=== PATIENT | female | born 1965 | race Caucasian/White ===

== ENCOUNTER → 2023-04-08 | Outpatient (CLI) | payer OTHER ==
--- NOTE | 2023-04-08 21:05 | PE ---
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 Images are reviewed on the computer in the coronal, a xial, and sagittal planes. Reconstructed rotating images are created on independent workstation and reviewed on the computer. A non-contrast CT is performed in conjunction with the PET scan. Glucose level 145 mg/dL COMPARISON: CT None, PET/CT None, FINDINGS: Mediastinal SUV mean is 1.5. Hepatic parenchyma SUV mean is 2.2. SKULL BASE AND NECK: No suspicious radiotracer activity. CHEST, MEDIASTINUM, AND HILAR REGION: No suspicious radiotracer activity. ABDOMEN AND PELVIS: No suspicious radiotracer activity. MUSCULOSKELETAL STRUCTURES: No suspicious radiotracer activity. Bilateral upper extremity muscle strain OTHER CT: Atherosclerosis of the arterial vasculature. Multip le right upper chest wall varicosities are noted. Atherosclerosis of the arteries are present. IMPRESSION: No suspicious radiotracer activity.
== END | disposition home or self-care (01) ==
LOC: RADPETMAIN 15:16
PROVIDERS: ATTEND Internal Medicine
DX: C88.4 Extranodal marginal zone B-cell lymphoma of mucosa-associated lymphoid tissue [MALT-lymphoma] (principal)
CPT/HCPCS: 78815; A9552

== ENCOUNTER 2023-06-29 11:44 | Day surgery (SDC) | payer OTHER ==
[2023-06-27 16:12] VITALS: BMI 44.2
--- NOTE | 2023-06-28 13:49 | P.HPOR ---
History of Present Illness H&P Date: 06/28/23 Subjective: This is a 57 year old female that presents today for initial evaluation regarding a several year history of progressively worsening right and left hand numbness and tingling and right and left base of the thumb pain which is worse on the right side compared to the left side. She has numbness and tingling with burning sensation in the thumb, index and middle finger as well as pain with pinch grasp and table movement of the thumb. She has tried to wear braces in the past with minimal relief. She denies any injury or inciting event. Physical Examination: LUE: AIN/PIN/Radial/Ulnar/Median motor intact. Radial/Ulnar/Median SILT. 2+/4 Radial/Ulnar pulses palpated. 5/5 APB, 5/5 FDI. Negative Finkelsteins, positive CMC grind, positive Durkan's compression. RUE: AIN/PIN/Radial/Ulnar/Median motor intact. Radial/Ulnar/Median SILT. 2+/4 Radial/Ulnar pulses palpated. 5/5 APB, 5/5 FDI. Negative Finkelsteins, positive CMC grind, positive Durkan's compression. Imaging: X-Rays of the left hand 3 view taken in the office today demonstrate severe left thumb CMC arthritis. X-Rays of the right hand 3 view taken in the office today demonstrate severe right thumb CMC arthritis. Impression: 1.)B/L Severe thumb CMC arthritis 2.) B/L carpal tunnel syndrome Plan: Diagnosis and treatment options were discussed with the patient. She's fail conservative treatment for her bilateral carpal tunnel syndrome and base of the thumb pain and would like to pursue surgical intervention. She would like to go forward with a right endoscopic versus open carpal tunnel release and a right thumb CMC basilar joint arthroplasty. Risks and benefits of surgery including bleeding, infection, damage to surrounding tissue, need for further surgery, possible need to convert to open procedure, residual numbness were discussed and the patient wished to go forward with surgery. The patient was agreeable with this plan. CC: Isaac Garcia M.D. -Les Lynn DO Orthopedic Hand/Upper Extremity Surgeon Past Medical History Past Medical History: Coronary Artery Disease (CAD), Cancer, Chest Pain / Angina, CVA/TIA, GERD/Reflux, Hypertension, Thyroid Disorder Additional Past Medical History / Comment(s): Lymphoma, diagnosed 20 yrs ago, in remission. Born with a heart murmur. CVA 15 yrs ago, no residual effects. CPAP use. Hx thyroid problems, no current problems. History of Any Multi-Drug Resistant Organisms: None Reported Additional Past Surgical History / Comment(s): Thyroidectomy, eye surgery, bilateral foot surgery. Past Anesthesia/Blood Transfusion Reactions: No Reported Reaction Past Psychological History: Depression Smoking Status: Never smoker Past Alcohol Use History: None Reported Past Drug Use History: Marijuana Additional Drug Use History / Comment(s): Marijuana use on and off. Aware no use 24 hrs prior to procedure. - Past Family History Mother Family Medical History: Cancer Additional Family Medical History / Comment(s): Blood cancer. Medications and Allergies Home Medications Medication Instructions Recorded Confirmed Type ARIPiprazole IM [Abilify Maintena] 400 mg IM Q30D 11/25/22 06/27/23 History Ammonium Lactate Cream [Lac-Hydrin 1 applic TOPICAL BID PRN 11/25/22 06/27/23 History 12% Cream] Atorvastatin [Lipitor] 40 mg PO DAILY 11/25/22 06/27/23 History Budesonide/Formoterol Fumarate 2 puff INHALATION BID 11/25/22 06/27/23 History [Symbicort 160-4.5 Mcg Inhaler] Loratadine [Claritin] 10 mg PO DAILY 11/25/22 06/27/23 History Losartan Potassium 100 mg PO HS 11/25/22 06/27/23 History Metoprolol Succinate (ER) [Toprol 100 mg PO QAM 11/25/22 06/27/23 History XL] Potassium Chloride ER [K-Dur 10] 10 meq PO DAILY 11/25/22 06/27/23 History Tiotropium 2.5 Mcg/Puff [Spiriva 1 puff INHALATION BID 11/25/22 06/27/23 History Respimat 2.5 Mcg] lamoTRIgine 100 mg PO QAM 11/25/22 06/27/23 History Allergies Allergy/AdvReac Type Severity Reaction Status Date / Time No Known Allergies Allergy Verified 06/27/23 15:59 Physical Examination Osteopathic Statement: *. No significant issues noted on an osteopathic structural exam other than those noted in the History and Physical/Consult.
[~2023-06-29 11:44] MED LIST: DEXAMETHASONE SOD PHOSPHATE 4 MG/ML 1 ML VIAL IV ONE; HYDROmorphone 0.5 MG/0.5 ML SYRINGE IVP PRN; LACTATED RINGERS 1,000 ML IV SCH; LIDOCAINE 1% (10MG/ML) FOR IV START INTRADERMA PRN; ONDANSETRON 4 MG/2 ML VIAL IVP ONE; ceFAZolin 3 GM in SODIUM CHLORIDE 0.9% 100 ML IVPB PRN; droPERidol 5 MG/2 ML VIAL IVP ONE
[2023-06-29] MEDS ORDERED: MIDAZOLAM 2 MG/2 ML VIAL IVP ONE (13:03)
[2023-06-29] MEDS ORDERED: fentaNYL (PF) 50 MCG/ML 2 ML AMP IVP ONE (13:03)
[2023-06-29] MEDS ORDERED: SUCCINYLCHOLINE CHLORIDE 200 MG/10 ML VIAL IV ONE (13:17)
[2023-06-29] MEDS ORDERED: MIDAZOLAM 2 MG/2 ML VIAL ONE (13:17)
[2023-06-29] MEDS ORDERED: KETAMINE 10 MG/ML 20 ML VIAL ONE (13:17)
[2023-06-29] MEDS ORDERED: fentaNYL (PF) 50 MCG/ML 2 ML AMP ONE (13:17)
[2023-06-29] MEDS ORDERED: ROPIVACAINE 5 MG/ML 30 ML VIAL ONE (13:17)
[2023-06-29] MEDS ORDERED: LIDOCAINE 2% INJ 20 MG/ML (2 ML VIAL) ONE (13:17)
[2023-06-29] MEDS ORDERED: GLYCOPYRROLATE 0.2 MG/ML 2 ML VIAL ONE (13:17)
[2023-06-29] MEDS ORDERED: PROPOFOL 10 MG/ML 20 ML VIAL IV ONE (13:17)
--- NOTE | 2023-06-29 13:21 | P.ANPRN ---
Procedure Note - Anesthesia - Nerve Block Performed Right Axillary Time Out Performed: Yes (13:03) Date of Procedure: 06/29/23 Procedure Start Time: : Procedure Stop Time: : Location of Patient: PreOp Indication: Acute Post-Operative Pain, Requested by Surgeon (Dr Lynn) Sedation Type: Sedate with meaningful contact maintained Preparation: Sterile Prep Position: Supine Catheter: None Needle Types: Pajunk Needle Gauge: Other (see comment) (22g) Ultrasound used to visualize needle placement: Yes Ultrasound used to observe medication spread: Yes Injectate: 0.5% Ropivacaine (see comment for volume) (22cc) Blood Aspirated: No Pain Paresthesia on Injection Noted: No Resistance on Injection: Normal Image Stored and Saved: Yes Events: Uneventful and Well Tolerated
[2023-06-29 14:38] VITALS: TEMP 97.2
[2023-06-29 15:03] VITALS: RESP 14
[2023-06-29] MEDS ORDERED: HYDROcodone/APAP 5-325MG 1 EACH TAB ONE (15:08)
--- NOTE | 2023-06-29 16:56 | P.OP ---
Date of Procedure: 06/29/23 Preoperative Diagnosis: 1.) Right thumb CMC basilar joint arthritis 2.) Right carpal tunnel syndrome Postoperative Diagnosis: 1.) Right thumb CMC basilar joint arthritis 2.) Right carpal tunnel syndrome Procedure(s) Performed: 1.) Right thumb CMC basilar joint arthroplasty 2.) Right endoscopic carpal tunnel release Implants: Arthrex 3.5mm Swivel Lock Suture [place] x2 Anesthesia: jaspal RUIZ Surgeon: Les Lynn Corporate Specialist #1: Osvaldo Saldana Estimated Blood Loss (ml): 0 Pathology: none sent Condition: stable Disposition: PACU Description of Procedure: This is a 57 year old female who presents today for a right thumb CMC basal joint arthroplasty and right endoscopic carpal tunnel release after having failed conservative treatment for carpal tunnel syndrome and severe thumb CMC arthritis and clinic. Risks and benefits of surgery were discussed with the patient including bleeding, damage to surrounding tissue, infection, need for further surgery as well as risks of anesthesia including pulmonary embolism and even and the patient wished to proceed with surgical intervention. The patients was seen in the pre-operative area by myself. Consent and H&P were completed and updated. The correct extremity was marked in the pre-operative area by myself and all other questions were answered. Patient received a upper extremity nerve block by the department of anesthesia. He then was brought to the operating room by the department of anesthesia. They remained on the portable stretcher and a rolling hand table was brought to the side of the operative extremity. The patient was then drifted off to sleep by the department of anesthesia. A nonsterile tourniquet was then applied to the operative extremity and the right upper extremity was then prepped and draped in normal sterile fashion. Pre-operative time out was performed indicating the correct patient, procedure and laterality. All in the room agreed. Pre-operative antibiotics were given prior to skin incision. The operative extremity was the exsanguinated with an esmarch bandage and the tourniquet was inflated to 250mmHg. 15 blade scalpel was utilized to make a transverse incision on the palmar skin just ulnar to the palmaris longus tendon at the level of the distal wrist crease. Ragnell retractor was then placed radially and blunt dissection was performed to reveal the distal forearm fascia. This was lifted with fine Leo pick ups and Allysonr tenotomy scissors were then used to open the forearm fascia transversely and a double skin hook was then placed. Hamate finder was placed into the carpal tunnel and then sequential sized dilators were inserted followed by the synovial elevator to separate the flexor tenosynovium from the undersurface of the transverse carpal ligament and a washboard texture was felt. The MicroAire endoscopic carpal tunnel release system gun was the then inserted into the carpal tunnel hugging the deep portion of the transverse carpal ligament in line with the base of the ring finger. Transverse fibers of the ligament were directly visualized. Pressure was applied on the palm to reveal the distal extent of the transverse carpal ligament. The blade was then deployed and the distal half of the transverse carpal ligament was released. The scope was then brought distal again and remaining transverse fibers were incised with the blade. The proximal half of the transverse carpal ligament was then divided and again the scope was advanced distal and remaining transverse fibers were incised with the blade. The radial and ulnar leaflets were directly visualized and mobile consistent with complete release. Tenotomy scissors were then utilized to release the remaining distal forearm fascia under direct visualization taking care to preserve the palmar cutaneous branch of the median nerve. Longitudinal incision was made over the left thumb CMC joint with a 15 blade scalpel. Blunt dissection was taken down to subcutaneous tissues with littler scissors taking care to preserve the branches of the superficial radial nerve. Dorsal radial artery was identified proximally in the incision and protected throughout the procedure. Scalpel was then made to incise the thumb CMC joint creating full thickness flaps off of the proximal metacarpal base and trapezium, this plane was further developed with a periosteal elevator. Elevator was then utilized to identify the thumb CMC joint and scaphotrapezial joint. McGlamory elevator was then used to excise the trapezium whole. Guidewire was then introduced down to the laser line at the base of the first metacarpal through the same incision and was over drilled. Another guidewire was then inserted at the radial base of the first metacarpal near the Insertion of APL and was then over drilled with normal drill guide. A 3.5mm Arthrex SwiveLock anchor was then inserted into the base of the first metacarpal. While holding the thumb in slight traction and full adduction, another 3.5mm Arthrex SwiveLock anchor was inserted into the base of the second metacarpal and the two strands of fibertape were centered across the first metacarpal base to create a sling around the base suspending the thumb metacarpal, good cathy purchase was appreciated. The thumb was successfully suspended and full ROM was achieved passively. Suture ends were cut and skin was closed with several interrupted 4-0 Monocryl sutures followed by a running 4-0 Monocryl stitch. Sterile dressing consisting of mastisol and steri strips followed by 4x4s cast padding, and a thumb spica plaster splint was applied. Tourniquet was let down and the hand had brisk cap refill and normal perfusion immediately. The patient was then woken by the department of anesthesia and transferred to PACU in stable condition. Osvaldo BURGESS was present for the case and assisted in major portions of procedure and protection of vital neurovascular structures. Les Lynn D.O. Orthopedic Hand/Upper Extremity Surgeon
[2023-06-30 15:42] VITALS: BP 134/63
[2023-06-30 15:43] VITALS: PULSE 68
== END 2023-06-29 15:54 | disposition home or self-care (01) ==
LOC: OR 11:44
PROVIDERS: ATTEND Orthopaedic Surgery Hand Surgery
DX: M18.11 Unilateral primary osteoarthritis of first carpometacarpal joint, right hand (principal); G56.01 Carpal tunnel syndrome, right upper limb; G89.18 Other acute postprocedural pain; I25.10 Atherosclerotic heart disease of native coronary artery without angina pectoris; K21.9 Gastro-esophageal reflux disease without esophagitis; I10 Essential (primary) hypertension; F12.90 Cannabis use, unspecified, uncomplicated; E07.9 Disorder of thyroid, unspecified; Z86.73 Personal history of transient ischemic attack (TIA), and cerebral infarction without residual deficits; Z80.3 Family history of malignant neoplasm of breast; Z79.51 Long term (current) use of inhaled steroids; Z79.899 Other long term (current) drug therapy
CPT/HCPCS: 64415; 84132; 25447; 29848; C1713 ×2; J2250; J0330; J1100; J0690; J2405; J3010; J2795; J2704; J2001

== ENCOUNTER 2023-08-26 14:24 | Observation (INO) | payer OTHER ==
--- NOTE | 2023-08-26 14:38 | ED ---
General Adult HPI - General Chief complaint: Chest Pain Stated complaint: Chest Pain Time Seen by Provider: 08/26/23 14:32 Source: patient, family, EMS Mode of arrival: EMS Limitations: no limitations - History of Present Illness Initial comments: Patient presents to the ED by ambulance for evaluation. Patient states that she developed diffuse chest pain radiating to her back about 5 hours ago while at rest. Patient states that she has had intermittent chest pain since then. Patient denies having any pain currently. Patient also admits to feeling somewhat dyspneic today. Patient also states that she had a headache earlier today and she experienced perioral tingling. Patient states that her perioral paresthesias and headache have currently resolved. Patient's son states that the patient "is a hypochondriac", and he states that the patient has had similar symptoms in the past with negative findings. Patient denies having any symptoms at this time. Patient denies trauma or injury, fever or chills, focal weakness, visual changes, speech difficulty, neck/arm/jaw pain, pleuritic pain, cough or cold symptoms, palpitations, dizziness, nausea/vomiting/diaphoresis, diarrhea, bloody or melanotic stool, abdominal pain, dysuria or urinary symptoms, decreased urine output, leg or calf swelling or pain, or any other symptoms or complaints. Patient states that she is currently on antibiotic treatment for a "pneumonia", but she states that her cough and fever/chills have resolved. - Related Data Home Medications Medication Instructions Recorded Confirmed ARIPiprazole IM [Abilify Maintena] 400 mg IM Q30D 11/25/22 08/26/23 Atorvastatin [Lipitor] 40 mg PO DAILY 11/25/22 08/26/23 Budesonide/Formoterol Fumarate 2 puff INHALATION RT-BID 11/25/22 08/26/23 [Symbicort 160-4.5 Mcg Inhaler] Losartan Potassium 100 mg PO DAILY 11/25/22 08/26/23 Metoprolol Succinate (ER) [Toprol 100 mg PO DAILY 11/25/22 08/26/23 XL] Potassium Chloride ER [K-Dur 10] 10 meq PO DAILY 11/25/22 08/26/23 Tiotropium 2.5 Mcg/Puff [Spiriva 1 puff INHALATION RT-DAILY 11/25/22 08/26/23 Respimat 2.5 Mcg] Albuterol Nebulized [Ventolin 3 ml INHALATION RT-QID PRN 08/26/23 08/26/23 Nebulized] Amoxic-Pot Clav 875-125Mg 1 tab PO BID 08/26/23 08/26/23 [Augmentin 875-125] Azelastine HCl [Astelin Nasal 2 spray EA NOSTRIL BID 08/26/23 08/26/23 Cliff] Chlorthalidone [Hygroton] 25 mg PO DAILY 08/26/23 08/26/23 DULoxetine HCL 40 mg PO BID 08/26/23 08/26/23 Ergocalciferol [Vitamin D2 (1250 1,250 mcg PO WE 08/26/23 08/26/23 Mcg = 30336 Iu)] Fluticasone/Umeclidin/Vilanter 1 puff INHALATION RT-DAILY 08/26/23 08/26/23 [Trelegy Ellipta 200-62.5-25] Furosemide [Lasix] 20 mg PO DAILY 08/26/23 08/26/23 HYDROcodone/APAP 7.5-325MG [[place] 1 tab PO BID PRN 08/26/23 08/26/23 7.5-325] Ibuprofen [Motrin] 600 mg PO BID 08/26/23 08/26/23 Isosorbide Mononitrate ER [Imdur] 30 mg PO DAILY 08/26/23 08/26/23 Loratadine [Claritin] 10 mg PO DAILY 08/26/23 08/26/23 Melatonin 20 mg PO HS 08/26/23 08/26/23 Omeprazole [PriLOSEC] 20 mg PO BID 08/26/23 08/26/23 Oxybutynin Chloride [oxyBUTYnin 10 mg PO BID 08/26/23 08/26/23 chloride ER] cycloSPORINE 0.05% OPHTH SOLN 1 drop BOTH EYES BID 08/26/23 08/26/23 [Restasis] traMADol HCL 50 mg PO Q6H PRN 08/26/23 08/26/23 Allergies Allergy/AdvReac Type Severity Reaction Status Date / Time No Known Allergies Allergy Verified 08/26/23 15:53 Review of Systems ROS Statement: Those systems with pertinent positive or pertinent negative responses have been documented in the HPI. ROS Other: All systems not noted in ROS Statement are negative. Past Medical History Past Medical History: Coronary Artery Disease (CAD), Cancer, Chest Pain / Angina, CVA/TIA, GERD/Reflux, Hypertension, Thyroid Disorder Additional Past Medical History / Comment(s): Lymphoma, diagnosed 20 yrs ago, in remission. Born with a heart murmur. CVA 15 yrs ago, no residual effects. CPAP use. Hx thyroid problems, no current problems. History of Any Multi-Drug Resistant Organisms: None Reported Additional Past Surgical History / Comment(s): Thyroidectomy, eye surgery, bilateral foot surgery. Past Anesthesia/Blood Transfusion Reactions: No Reported Reaction Past Psychological History: Depression Smoking Status: Never smoker Past Alcohol Use History: None Reported Past Drug Use History: Marijuana - Past Family History Mother Family Medical History: Cancer Additional Family Medical History / Comment(s): Blood cancer. General Exam Limitations: no limitations General appearance: alert, in no apparent distress Head exam: Present: normocephalic Eye exam: Present: normal appearance, PERRL, EOMI ENT exam: Present: mucous membranes moist Neck exam: Present: other (Trachea is in midline) Respiratory exam: Present: normal lung sounds bilaterally. Absent: respiratory distress, wheezes, rales, rhonchi, stridor, chest wall tenderness Cardiovascular Exam: Present: regular rate, normal rhythm, normal heart sounds, other (Normal radial pulses bilaterally) GI/Abdominal exam: Present: soft. Absent: distended, tenderness, guarding Extremities exam: Present: other (Negative Homans sign bilaterally). Absent: tenderness, pedal edema, calf tenderness Back exam: Present: normal inspection. Absent: tenderness Neurological exam: Present: alert, oriented X3, CN II-XII intact. Absent: motor sensory deficit Psychiatric exam: Present: normal affect Skin exam: Present: warm, dry, intact, normal color Course Vital Signs 08/26/23 14:25 Temperature 98.1 F Pulse Rate 85 Respiratory 18 Rate O2 Sat by Pulse 97 Oximetry - Reevaluation(s) Reevaluation #1: 08/26/23 17:04 Case, H&P and test results were discussed with Dr. Garcia. He accepts hospital admission. He has no further recommendations at this time. 08/26/23 17:19 Patient denies development of any new symptoms while in the ED. Patient remains alert and breathing comfortably with a normal room air oxygen saturation. Patient continues to have a normal neurological exam. Patient and family are aware of the patient's test results and my discussion with Dr. Garcia. Patient agrees with hospital admission at this time. EKG Findings - EKG Comments: EKG Findings:: ED physician interpretation (interpreted by me): Sinus rhythm wi th borderline first-degree AV block, ventricular rate of 77 bpm, no ectopy, TX interval of 206 ms, normal QRS duration, normal QT interval, normal axis, no ST or T wave abnormality Medical Decision Making - Medical Decision Making Was pt. sent in by a medical professional or institution (, PA, SCRAPER LOADER OPERATOR, urgent care, hospital, or senior care...) When possible be specific @ -No Did you speak to anyone other than the patient for history (EMS, parent, family, police, friend...)? What history was obtained from this source @ -No Did you review nursing and triage notes (agree or disagree)? Why? @ -I reviewed and agree with nursing and triage notes Were old charts reviewed (outside hosp., previous admission, EMS record, old EKG, old radiological studies, urgent care reports/EKG's, senior care records)? Report findings @ -No old charts were reviewed Differential Diagnosis (chest pain, altered mental status, abdominal pain women, abdominal pain men, vaginal bleeding, weakness, fever, dyspnea, syncope, headache, dizziness, GI bleed, back pain, seizure, CVA, palpatations, mental health, musculoskeletal)? @ -Differential Chest Pain: Stable Angina, Unstable Angina, STEMI, NSTEMI, Aortic Dissection, Pneumothorax, Musculoskeletal, Esophageal Spasm, GERD, pulmonary embolism, pneumonia, headache, CVA, TIA, intracranial mass, intracranial hemorrhage, paresthesias, neuropathy, electrolyte abnormality, anxiety, this is not meant to be an all-inclusive list. EKG interpreted by me (3pts min.). @ -As above X-rays interpreted by me (1pt min.). @ -Chest x-ray was reviewed myself and shows no definite acute abnormality. CT interpreted by me (1pt min.). @ -Noncontrast head CT was reviewed myself and shows no acute bleed or mass effect. I agree with the radiologist's interpretation as above. CT angiography chest with IV contrast reviewed myself and shows no definite pulmonary embolus. I agree with the radiologist's interpretation as above. U/S interpreted by me (1pt. min.). @ -None done What testing was considered but not performed or refused? (CT, X-rays, U/S, labs)? Why? @ -None What meds were considered but not given or refused? Why? @ -None Did you discuss the management of the patient with other professionals (professionals i.e. Dr., PA, SCRAPER LOADER OPERATOR, lab, RT, psych nurse, school social worker, safety relief valve technician, teacher, financial compliance officer, case preparer and liner)? Give summary @ -As above. Was smoking cessation discussed for >3mins.? @ -No Was critical care preformed (if so, how long)? @ -No Were there social determinants of health that impacted care today? How? (Homelessness, low income, unemployed, alcoholism, drug addiction, transportation, low edu. Level, literacy, decrease access to med. care, fdc, rehab)? @ -No Was there de-escalation of care discussed even if they declined (Discuss DNR or withdrawal of care, Hospice)? DNR status @ -No What co-morbidities impacted this encounter? (DM, HTN, Smoking, COPD, CAD, Cancer, CVA, ARF, Chemo, Hep., AIDS, mental health diagnosis, sleep apnea, morbid obesity)? @ -CAD Was patient admitted / discharged? Hospital course, mention meds given and route, prescriptions, significant lab abnormalities, going to OR and other p ertinent info. @ -Patient presented to the ED complaining of having intermittent chest pain since this morning. Patient's EKG does not show any ST or T-wave abnormality. Patient's initial troponin is negative. Patient's d-dimer was minimally elevated, so a CT angiogram chest was obtained. Patient's CT angiography chest is negative for pulmonary embolus. Given the patient's reported headache and perioral paresthesias, a noncontrast head CT was obtained, which demonstrates a possible right temporal mass with recommendation to obtain MRI with contrast. I contacted the MRI department, and they state that they're unable to take the patient for an MRI today, as they are "backed up". These findings and inability to obtain MRI were discussed with the patient's primary care provider, Dr. Garcia, and he recommends/accepts hospital admission. An MRI order was placed. Serial troponins were also ordered. Patient was treated with a dose of aspirin in the ED. Undiagnosed new problem with uncertain prognosis? @ -No Drug Therapy requiring intensive monitoring for toxicity (Heparin, Nitro, Insulin, Cardizem)? @ -No Were any procedures done? @ -No Diagnosis/symptom? @ -Chest pain Acute, or Chronic, or Acute on Chronic? @ -Acute Uncomplicated (without systemic symptoms) or Complicated (systemic symptoms)? @ -default Side effects of treatment? @ -No Exacerbation, Progression, or Severe Exacerbation? @ -No Poses a threat to life or bodily function? How? (Chest pain, [place], pneumonia, PE, COPD, DKA, ARF, appy, cholecystitis, CVA, Diverticulitis, Homicidal, Suicidal, threat to staff... and all critical care pts) @ -No Diagnosis/symptom? @ -Headache and perioral paresthesias Acute, or Chronic, or Acute on Chronic? @ -Acute, transient Uncomplicated (without systemic symptoms) or Complicated (systemic symptoms)? @ -default Side effects of treatment? @ -none Exacerbation, Progression, or Severe Exacerbation] @ -no Poses a threat to life or bodily function? @ -no Diagnosis/symptom? @ -Possible intracranial mass Acute, or Chronic, or Acute on Chronic? @ -default Uncomplicated (without systemic symptoms) or Complicated (systemic symptoms)? @ -default Side effects of treatment? @ -none Exacerbation, Progression, or Severe Exacerbation] @ -no Poses a threat to life or bodily function? @ -no - Lab Data Result diagrams: 08/26/23 15:04 08/26/23 15:04 Lab Results 08/26/23 08/26/23 08/26/23 Range/Units 15:04 15:04 15:04 WBC 5.7 (3.8-10.6) k/uL RBC 4.07 (3.80-5.40) m/uL Hgb 13.4 (11.4-16.0) gm/dL Hct 39.2 (34.0-46.0) % MCV 96.1 (80.0-100.0) fL MCH 32.9 (25.0-35.0) pg MCHC 34.2 (31.0-37.0) g/dL RDW 13.3 (11.5-15.5) % Plt Count 228 (150-450) k/uL MPV 7.5 Neutrophils % 66 % Lymphocytes % 26 % Monocytes % 4 % Eosinophils % 2 % Basophils % 0 % Neutrophils # 3.7 (1.3-7.7) k/uL Lymphocytes # 1.5 (1.0-4.8) k/uL Monocytes # 0.2 (0-1.0) k/uL Eosinophils # 0.1 (0-0.7) k/uL Basophils # 0.0 (0-0.2) k/uL PT 10.0 (10.0-12.5) sec INR 0.9 (<1.2) APTT 23.8 (22.0-30.0) sec D-Dimer 0.67 H (<0.60) mg/L FEU Sodium 140 (137-145) mmol/L Potassium 4.0 (3.5-5.1) mmol/L Chloride 104 (98-107) mmol/L Carbon Dioxide 26 (22-30) mmol/L Anion Gap 10 mmol/L BUN 11 (7-17) mg/dL Creatinine 0.84 (0.52-1.04) mg/dL Est GFR (CKD-EPI)AfAm 89 (>60 ml/min/1.73 sqM) Est GFR (CKD-EPI)NonAf 77 (>60 ml/min/1.73 sqM) Glucose 109 H (74-99) mg/dL Calcium 9.4 (8.4-10.2) mg/dL Magnesium 1.9 (1.6-2.3) mg/dL Total Bilirubin 0.6 (0.2-1.3) mg/dL AST 52 H (14-36) U/L ALT 54 H (4-34) U/L Alkaline Phosphatase 84 (38-126) U/L Troponin I (0.000-0.034) ng/mL NT-Pro-B Natriuret Pep 601 pg/mL Total Protein 6.7 (6.3-8.2) g/dL Albumin 3.9 (3.5-5.0) g/dL 08/26/23 Range/Units 15:04 WBC (3.8-10.6) k/uL RBC (3.80-5.40) m/uL Hgb (11.4-16.0) gm/dL Hct (34.0-46.0) % MCV (80.0-100.0) fL MCH (25.0-35.0) pg MCHC (31.0-37.0) g/dL RDW (11.5-15.5) % Plt Count (150-450) k/uL MPV Neutrophils % % Lymphocytes % % Monocytes % % Eosinophils % % Basophils % % Neutrophils # (1.3-7.7) k/uL Lymphocytes # (1.0-4.8) k/uL Monocytes # (0-1.0) k/uL Eosinophils # (0-0.7) k/uL Basophils # (0-0.2) k/uL PT (10.0-12.5) sec INR (<1.2) APTT (22.0-30.0) sec D-Dimer (<0.60) mg/L FEU Sodium (137-145) mmol/L Potassium (3.5-5.1) mmol/L Chloride (98-107) mmol/L Carbon Dioxide (22-30) mmol/L Anion Gap mmol/L BUN (7-17) mg/dL Creatinine (0.52-1.04) mg/dL Est GFR (CKD-EPI)AfAm (>60 ml/min/1.73 sqM) Est GFR (CKD-EPI)NonAf (>60 ml/min/1.73 sqM) Glucose (74-99) mg/dL Calcium (8.4-10.2) mg/dL Magnesium (1.6-2.3) mg/dL Total Bilirubin (0.2-1.3) mg/dL AST (14-36) U/L ALT (4-34) U/L Alkaline Phosphatase (38-126) U/L Troponin I <0.012 (0.000-0.034) ng/mL NT-Pro-B Natriuret Pep pg/mL Total Protein (6.3-8.2) g/dL Albumin (3.5-5.0) g/dL - Radiology Data Chest x-ray: Possible early developing infiltrate at the lateral right upper lobe. Noncontrast head CT: 1. No acute bleed or mass effect. 2. Remote lacunar infarcts in the left basal ganglia and cerebral white matter. 3. Possible small ill-defined intra-or extra-axial mass involving the right temporal lobe as described above. MRI with contrast would be useful for further evaluation. 4. Mild fluid in the mastoid air cells. CT angiography chest with IV contrast: 1. Some breathing motion artifact limiting the exam. No definite pulmonary embolus. 2. COPD with mild emphysema. Either a prominent component of chronic bro nchitis versus superimposed acute bronchitis. No focal infiltrate as was questioned on the patient's radiographs. 3. Marked hepatic steatosis. Appropriate clinical management advised. 4. There may be an underlying chronic full-thickness tear of the right subscapularis tendon. Disposition Clinical Impression: Chest pain, Paresthesias, Headache Narrative: Possible intracranial mass Disposition: ADMITTED IP TO THIS HOSP Condition: Stable Is patient prescribed a controlled substance at d/c from ED?: No Referrals: Nilesh Garcia MD [Primary Care Provider] - 1-2 days Time of Disposition: 17:05
--- NOTE | 2023-08-26 15:02 | XR ---
EXAMINATION TYPE: XR chest 2V DATE OF EXAM: 08/26/2023 COMPARISON: 11/25/2022 HISTORY: 57-year-old female with chest pain TECHNIQUE: PA and lateral views FINDINGS: Heart normal size. Aorta and pulmonary vasculature are within normal limits. There is a vague density which has developed at the periphery of right upper lobe. Mild hyperinflation. No other consolidatio n or pleural effusion. IMPRESSION: Possible early developing infiltrate at the lateral right upper lobe.
--- NOTE | 2023-08-26 15:14 | CT ---
EXAMINATION TYPE: CT brain wo con DATE OF EXAM: 08/26/2023 COMPARISON: None HISTORY: Headache and perioral numbness CT DLP: 1074.4 mGycm Automated exposure control for dose reduction was used. FINDINGS: The ventricles, basal cisterns and sulci over convexities within normal limits and there is no mass e ffect or shift of the midline structures. There is no acute intra or extra-axial hemorrhage. There are remote lacunar infarcts in the left basa l ganglia and in the left centrum semiovale. In the right lateral temporal lobe, there is a small focal area of ill-defined slight hypodensity inv olving the cortex measuring approximately 10 mm. Mass is not excluded. MRI of the brain with contrast might be useful for further evaluation. Posterior fossa including the brainstem, fourth ventricle and cerebellar pontine angles appear normal . The intraorbital contents appear normal and symmetric. Visualized paranasal sinuses are well aerated. There is mild fluid in the mastoid air cells bilateral ly. IMPRESSION: 1. No acute bleed or mass effect. 2. Remote lacunar infarcts in the left basal ganglia and cerebral white matter. 3. Possible small ill-defined intra or extra-axial mass involving the right temporal lobe as describe d above. MRI with contrast would BE useful for further evaluation. 4. Mild fluid in the mastoid air cells.
[2023-08-26 15:16] LABS: Basophils % (A) 0 %; Eosinophils # (A) 0.1 k/uL (0-0.7); Eosinophils % (A) 2 %; HCT 39.2 % (34.0-46.0); HGB 13.4 gm/dL (11.4-16.0); Lymphocytes # (A) 1.5 k/uL (1.0-4.8); Lymphocytes % (A) 26 %; MCH 32.9 pg (25.0-35.0); MCHC 34.2 g/dL (31.0-37.0); MCV 96.1 fL (80.0-100.0); Mean Platelet Volume 7.5; Monocytes # (A) 0.2 k/uL (0-1.0); Monocytes % (A) 4 %; Neutrophils # (A) 3.7 k/uL (1.3-7.7); Neutrophils % (A) 66 %; Platelet Count 228 k/uL (150-450); RBC 4.07 m/uL (3.80-5.40); RDW 13.3 % (11.5-15.5); WBC 5.7 k/uL (3.8-10.6)
[2023-08-26 15:33] LABS: INR 0.9 (<1.2); Partial Thromboplastin Time 23.8 sec (22.0-30.0)
[2023-08-26 15:55] LABS: ALT 54 U/L (4-34); AST 52 U/L (14-36); African American GFR (CKD) 89 (>60 ml/min/1.73 sqM); Albumin 3.9 g/dL (3.5-5.0); Alkaline Phosphatase 84 U/L (38-126); Anion Gap 10 mmol/L; Blood Urea Nitrogen 11 mg/dL (7-17); Calcium 9.4 mg/dL (8.4-10.2); Carbon Dioxide 26 mmol/L (22-30); Chloride 104 mmol/L (98-107); Glucose 109 mg/dL (74-99); Magnesium 1.9 mg/dL (1.6-2.3); Non-African American GFR(CKD) 77 (>60 ml/min/1.73 sqM); Sodium 140 mmol/L (137-145); Total Bilirubin 0.6 mg/dL (0.2-1.3); Total Protein 6.7 g/dL (6.3-8.2)
[2023-08-26 16:03] LABS: NT-Pro-B-Type Natriuretic Pept 601 pg/mL
--- NOTE | 2023-08-26 16:33 | CT ---
EXAMINATION TYPE: CT chest angio for PE DATE OF EXAM: 08/26/2023 COMPARISON: Radiograph 08/26/2023 HISTORY: 57-year-old female chest pain, dyspnea, elevated d-dimer TECHNIQUE: Contiguous axial scanning of the chest performed with IV Contrast, patient injected with 1 00 mL of Isovue 370. Coronal/sagittal MIP reconstructions performed. CT DLP: 645.5 mGycm Automated exposure control for dose reduction was used. FINDINGS: The heart is normal size without pericardial effusion. No flattening of the interventricular septum o r reflux of contrast into the hepatic veins. Aorta is normal caliber with bovine configuration to the aortic arch. No thoracic lymphadenopathy by CT size criteria. While there is satisfactory opacification of the pulmonary arterial system, there is some breathing m otion artifact limiting evaluation. No definite pulmonary embolus is seen. Mild diffuse bronchial wall thickening. There may be minimal emphysematous change in the upper lungs. Strandy atelectasis or scarring in the lower lungs. No consolidation or pleural effusion. There is a 2.1 cm cyst of the left liver lobe. Diminished attenuation of the hepatic parenchyma. Bee r splenule. Bones: [facility] in the lower thoracic spine. Mild degenerative disc disease throughout. There is cystic change of the right greater tuberosity and asymmetric fatty atrophy of the right subs capularis muscle. There may be underlying subscapularis tendon tear. IMPRESSION: 1. SOME BREATHING MOTION ARTIFACT LIMITING THE EXAM. NO DEFINITE PULMONARY EMBOLUS. 2. COPD WITH MILD EMPHYSEMA. EITHER A PROMINENT COMPONENT OF CHRONIC BRONCHITIS VERSUS SUPERIMPOSED A CUTE BRONCHITIS. NO FOCAL INFILTRATE WAS QUESTIONED ON THE PATIENT'S RADIOGRAPHS. 3. MARKED HEPATIC STEATOSIS. APPROPRIATE CLINICAL MANAGEMENT ADVISED. 4. THERE MAY BE AN UNDERLYING CHRONIC FULL-THICKNESS TEAR OF THE RIGHT SUBSCAPULARIS TENDON.
[2023-08-26] MEDS ORDERED: ASPIRIN 81 MG PO STA (17:04)
[2023-08-26] MEDS ORDERED: NALOXONE 0.4 MG/ML 1 ML VIAL IV PRN (17:07)
[2023-08-26] MEDS ORDERED: ALBUTEROL NEBULIZED 2.5 MG/3 ML INHALATION PRN (20:11)
[2023-08-26] MEDS ORDERED: traMADol 50 MG TAB PO PRN (20:11)
[2023-08-26] MEDS ORDERED: HYDROcodone/APAP 7.5-325MG 1 EACH TAB PO PRN (20:11)
[2023-08-26] MEDS ORDERED: MELATONIN 5 MG TABLET PO SCH (21:00)
[2023-08-26] MEDS: IBUPROFEN 600 MG TAB PO SCH (21:18)
[2023-08-26] MEDS: DULoxetine HCL 20 MG CAPSULE.DR PO SCH (21:20)
[2023-08-26] MEDS: cycloSPORINE 0.05% OPHTH 0.4 ML DROPERETTE BOTH EYES SCH (21:20)
[2023-08-26] MEDS: PANTOPRAZOLE 40 MG TABLET PO SCH (21:20)
[2023-08-26] MEDS: AZELASTINE 137MCG/SPRAY EA NOSTRIL SCH (21:21)
[2023-08-26] MEDS: ATORVASTATIN 40 MG TAB PO SCH (21:23)
[2023-08-26] MEDS: OXYBUTYNIN 10 MG TAB.ER.24 PO SCH (23:22)
[2023-08-27 07:50] VITALS: BMI 43.2
[2023-08-27] MEDS ORDERED: SYMBICORT 80-4.5 MCG INHALER INHALATION SCH (08:00)
[2023-08-27] MEDS ORDERED: NON FORMULARY DRUG (Tiotropium 2.5 Mcg/Puff 10 PUFF Each) INHALATION SCH (08:00)
[2023-08-27] MEDS ORDERED: SYMBICORT 160-4.5 MCG INHALER INHALATION SCH (08:00)
[2023-08-27] MEDS: ATORVASTATIN 40 MG TAB PO SCH (08:07)
[2023-08-27] MEDS: PANTOPRAZOLE 40 MG TABLET PO SCH (08:07)
[2023-08-27] MEDS: cycloSPORINE 0.05% OPHTH 0.4 ML DROPERETTE BOTH EYES SCH (08:08)
[2023-08-27] MEDS: AZELASTINE 137MCG/SPRAY EA NOSTRIL SCH (08:08)
[2023-08-27] MEDS: DULoxetine HCL 20 MG CAPSULE.DR PO SCH (08:08)
[2023-08-27] MEDS: OXYBUTYNIN 10 MG TAB.ER.24 PO SCH (08:09)
[2023-08-27 08:13] VITALS: TEMP 97.7
[2023-08-27] MEDS: IPRATROPIUM 0.5 MG/2.5 ML NEBU INHALATION SCH ×3 (08:53→16:07)
[2023-08-27] MEDS ORDERED: METOPROLOL SUCCINATE (ER) 100 MG TAB.ER.24H PO SCH (09:00)
[2023-08-27] MEDS ORDERED: CHLORTHALIDONE 25 MG TAB PO SCH (09:00)
[2023-08-27] MEDS ORDERED: AMOXIC-POT CLAV 875-125MG 1 EACH TAB PO SCH (09:00)
[2023-08-27] MEDS ORDERED: ISOSORBIDE MONONITRATE ER 30 MG TAB.ER.24H PO SCH (09:00)
[2023-08-27] MEDS ORDERED: LOSARTAN 50 MG TAB PO SCH (09:00)
[2023-08-27] MEDS ORDERED: POTASSIUM CHLORIDE ER 10 MEQ TAB.ER.PRT PO SCH (09:00)
[2023-08-27] MEDS ORDERED: FUROSEMIDE 20 MG TAB PO SCH (09:00)
[2023-08-27] MEDS ORDERED: LORATADINE 10 MG TAB PO SCH (09:00)
[2023-08-27] MEDS: IBUPROFEN 600 MG TAB PO SCH (09:14)
[2023-08-27 10:00] LABS: Basophils % (A) 0 %; Eosinophils # (A) 0.1 k/uL (0-0.7); Eosinophils % (A) 3 %; HCT 40.5 % (34.0-46.0); HGB 13.7 gm/dL (11.4-16.0); Lymphocytes # (A) 1.3 k/uL (1.0-4.8); Lymphocytes % (A) 27 %; MCH 32.2 pg (25.0-35.0); MCHC 33.7 g/dL (31.0-37.0); MCV 95.6 fL (80.0-100.0); Monocytes # (A) 0.2 k/uL (0-1.0); Monocytes % (A) 4 %; Neutrophils # (A) 3.1 k/uL (1.3-7.7); Neutrophils % (A) 65 %; Platelet Count 229 k/uL (150-450); RBC 4.23 m/uL (3.80-5.40); RDW 13.3 % (11.5-15.5); WBC 4.7 k/uL (3.8-10.6)
[2023-08-27 10:01] LABS: ALT 51 U/L (4-34); AST 52 U/L (14-36); African American GFR (CKD) >90 (>60 ml/min/1.73 sqM); Alkaline Phosphatase 81 U/L (38-126); Anion Gap 11 mmol/L; Blood Urea Nitrogen 13 mg/dL (7-17); Calcium 9.2 mg/dL (8.4-10.2); Carbon Dioxide 25 mmol/L (22-30); Chloride 105 mmol/L (98-107); Glucose 119 mg/dL (74-99); Non-African American GFR(CKD) 82 (>60 ml/min/1.73 sqM); Sodium 141 mmol/L (137-145); Total Bilirubin 0.8 mg/dL (0.2-1.3); Total Protein 6.8 g/dL (6.3-8.2)
[2023-08-27] MEDS ORDERED: NITROGLYCERIN SL TABS 0.4 MG TAB SUBLINGUAL PRN (10:26)
[2023-08-27 11:31] VITALS: RESP 18
--- NOTE | 2023-08-27 16:08 | MR ---
EXAMINATION TYPE: MR brain wo/w con DATE OF EXAM: 08/27/2023 3:31 PM CLINICAL INDICATION:Female, 57 years old with history of Abnormal noncontrast CT; PHH, Abnormal non-c ontrast CT COMPARISON: 08/26/2023. TECHNIQUE: Multi planar, multi sequence imaging was performed through the brain including: T1, T2, In version recovery, susceptibility weighted imaging and gradient echo imaging and Diffusion weighted im aging. The patient was then given intravenous contrast and multi planar, T1 fat-saturation images wer e obtained. IV Contrast: 11 cc Gadobutrol FINDINGS: The mohr-white junctions, ventricular system, basal cisterns appear unremarkable. Diffusion-weighted imaging shows no evidence of restricted diffusion to suggest acute/subacute infarct. Intracranial ar terial flow voids are maintained. Midline structures show no abnormality. The susceptibility weighted images do not reveal any evidence for micro-hemorrhage. After administration of gadolinium, no abnor mal enhancement is seen. The bone marrow signal is within normal limits. Paranasal sinuses and mastoid air cells: No significant paranasal sinus disease. Mastoid air cell hig h T2 signal fusion at Visualized orbits: Bilateral aphakia IMPRESSION: 1. No evidence of intracranial mass, acute/subacute infarct, or abnormal enhancement. Area on prior CT is felt to represent a sulcus. 2. Trace left mastoid air cell effusion.
[2023-08-27 16:11] VITALS: BP 126/69; PULSE 65
--- NOTE | 2023-08-28 16:40 | DS ---
DISCHARGE SUMMARY CHIEF COMPLAINT: Headache, hypoesthesias, and paresthesias. HISTORY OF PRESENT ILLNESS AND PHYSICAL EXAMINATION: Details of this lady's history and physical can be found in the initial workup. LABORATORY STUDIES: While she was in the hospital, she had laboratory studies, details of which can be found in the laboratory section of her chart. COURSE IN THE HOSPITAL: After admission, she was placed on bedrest and had intravenous fluids. She had had a CT in the emergency room that suggested a possible lesion in the right pentecostalism area, but an MRI was normal. The day after she was admitted, she was feeling fine and had no headaches, paresthesias, weakness, etc., and was anxious to be discharged. She will be sent home on her usual diet and activity as well as her usual medications, and she will follow up in the office in several days. FINAL DIAGNOSES: 1. Headache with paresthesias. 2. Chronic obstructive pulmonary disease. 3. History of previous cerebrovascular accident. 4. History of coronary artery disease. OPERATIONS: None. CONSULTATION: None. CONDITION: She is improved. MMLUIS / TOMASN: [id number] /
--- NOTE | 2023-08-28 21:10 | HP ---
HISTORY AND PHYSICAL CHIEF COMPLAINT: Headache, paresthesias in the face. HISTORY OF PRESENT ILLNESS: This is another admission for this 57-year-old white female with numerous problems including schizophrenia. She presented to the emergency room with a complaint of dysesthesia to the face, and headache. In the emergency room, there was a CT done, which suggested the possibility of an abnormality in the right temporal lobe. She was complaining of chest pain radiating to the back as well along with a headache. She is hypochondriacal. REVIEW OF SYSTEMS: She denied any diplopia, other focal neurologic signs or symptoms, syncope, dizziness, loss of sphincter control, fever and chills, chest pain, abdominal pain, etc. Past medical history, family history, and personal and social histories reveal that she has had a history of coronary artery disease, lymphoma (20 years ago), an old CVA, thyroidectomy, and cardiac murmur. She does have a COPD as well. The remainder of her history is essentially unremarkable. Medications are numerous and can be found in her MAR. PHYSICAL EXAMINATION: VITAL SIGNS: Blood pressure is 139/90 with a pulse of 83, respirations of 32, and she is afebrile. GENERAL: She appeared to be slightly overweight, in no acute distress. SKIN: Color was normal. Skin is warm, dry. LYMPHATICS: Lymph nodes are not enlarged. HEAD, EARS, EYES, NOSE, MOUTH AND THROAT: Normal. NECK: Neck veins are not distended. Carotids are normal. CHEST: Clear. CARDIAC: Normal. No murmur was heard. ABDOMEN: Protuberant, soft and nontender. Flanks nontender. EXTREMITIES: Normal. NEUROLOGICAL: She seemed to be intact. Mental status was normal. Cranial nerves were intact from II through XII. Sensorimotor exam was normal to confrontation. Toes are downgoing. IMPRESSION: She is admitted to the hospital with diagnoses of: 1. Headache and paresthesias of the face. 2. Possible abnormal CT of the brain. 3. Chest pain. 4. Headache. 5. History of coronary artery disease. 6. History of lymphoma. 7. History of previous cerebrovascular accident. 8. Status post thyroidectomy. PLAN: 1. Bedrest. 2. IV fluids. 3. Serial EKGs and enzymes. 4. Serial monitoring of her neurologic status and vital signs. MMODL / IJN: [id number] /
[2023-08-31] MEDS ORDERED: ERGOCALCIFEROL 1,250 MCG (50,000 IU) CAPSULE PO SCH (09:00)
[2023-09-13] MEDS ORDERED: ARIPiprazole IM 400 MG VIAL (NO COST) PHARMACY STOCK IM SCH (09:00)
== END 2023-08-27 18:06 | disposition home or self-care (01) ==
LOC: EC 14:24 → 3SCARD 17:09
PROVIDERS: ADMIT Family Medicine; ATTEND Family Medicine
DX: R07.89 Other chest pain (principal); R51.9 Headache, unspecified; R20.2 Paresthesia of skin; R20.1 Hypoesthesia of skin; J43.9 Emphysema, unspecified; I25.10 Atherosclerotic heart disease of native coronary artery without angina pectoris; K21.9 Gastro-esophageal reflux disease without esophagitis; I10 Essential (primary) hypertension; K76.0 Fatty (change of) liver, not elsewhere classified; E89.0 Postprocedural hypothyroidism; F20.9 Schizophrenia, unspecified; F32.A Depression, unspecified; Z79.51 Long term (current) use of inhaled steroids; Z79.899 Other long term (current) drug therapy; Z87.01 Personal history of pneumonia (recurrent); Z86.73 Personal history of transient ischemic attack (TIA), and cerebral infarction without residual deficits; Z85.72 Personal history of non-Hodgkin lymphomas; Z98.890 Other specified postprocedural states; Z80.6 Family history of leukemia
CPT/HCPCS: 99285; 36415; 94660 ×2; 94640; 93005; 85379; 83880; 80053 ×2; 83735; 84484 ×2; 85025 ×2; 85610; 85730; 71046; 70450; 71275; 70553; G0378 ×2; A9585; Q9967

== ENCOUNTER → 2023-08-30 | Outpatient (CLI) | payer OTHER ==
--- NOTE | 2023-08-30 09:48 | US ---
EXAMINATION TYPE: US arterial LE single level DATE OF EXAM: 08/30/2023 9:11 AM CLINICAL INDICATION: Female, 57 years old with history of I80.00 PHLBTS AND THOMBOPHLB; cramping bila t legs for months, pain in feet at night History of: Smoker: previous Hypertension: y Diabetic: n Hyperlipidemia: y TIA/CVA: y Previous Vascular Surgery: n CAD: n RI: n Vascular Ulcers: n Claudication: n Gangrene: n Doppler Waveforms: Right: Multiphasic Left: Multiphasic Right Brachial Pressure: 125 Left Brachial Pressure: 112 Ankle-Brachial Indices: Right: 1.2 Left: 1.1 Toe Brachial Indices: Right: 0.9 Left: 0.9 IMPRESSION: Normal bilateral ankle brachial indices.
== END | disposition home or self-care (01) ==
LOC: RADUSWWP 08:29
PROVIDERS: ATTEND Podiatrist
DX: I80.03 Phlebitis and thrombophlebitis of superficial vessels of lower extremities, bilateral (principal)
CPT/HCPCS: 93922

== ENCOUNTER 2025-02-06 20:26 | Emergency (ER) | payer OTHER ==
--- NOTE | 2025-02-06 21:47 | ED ---
ENT HPI - General Chief complaint: ENT Stated complaint: Hard to swallow, Absess in mouth Time Seen by Provider: 02/06/25 20:33 Source: patient Mode of arrival: ambulatory Limitations: no limitations - History of Present Illness Initial comments: 59-year-old female presenting with chief complaint of pain to the mouth and throat. She woke up with it today. She reports that she has a lot of white spots in her mouth. She is still able to eat and drink however reports it is painful to do so. No drooling or voice changes. No difficulty breathing. No fever. No cough congestion. - Related Data Home Medications Medication Instructions Recorded Confirmed ARIPiprazole IM [Abilify Maintena] 400 mg IM Q30D 11/25/22 08/26/23 Atorvastatin [Lipitor] 40 mg PO DAILY 11/25/22 08/26/23 Budesonide/Formoterol Fumarate 2 puff INHALATION RT-BID 11/25/22 08/26/23 [Symbicort 160-4.5 Mcg Inhaler] Losartan Potassium 100 mg PO DAILY 11/25/22 08/26/23 Metoprolol Succinate (ER) [Toprol 100 mg PO DAILY 11/25/22 08/26/23 XL] Potassium Chloride ER [K-Dur 10] 10 meq PO DAILY 11/25/22 08/26/23 Tiotropium 2.5 Mcg/Puff [Spiriva 1 puff INHALATION RT-DAILY 11/25/22 08/26/23 Respimat 2.5 Mcg] Albuterol Nebulized [Ventolin 3 ml INHALATION RT-QID PRN 08/26/23 08/26/23 Nebulized] Amoxic-Pot Clav 875-125Mg 1 tab PO BID 08/26/23 08/26/23 [Augmentin 875-125] Azelastine HCl [Astelin Nasal 2 spray EA NOSTRIL BID 08/26/23 08/26/23 Worden] DULoxetine HCL 40 mg PO BID 08/26/23 08/26/23 Ergocalciferol [Vitamin D2 (1250 1,250 mcg PO WE 08/26/23 08/26/23 Mcg = 85338 Iu)] Fluticasone/Umeclidin/Vilanter 1 puff INHALATION RT-DAILY 08/26/23 08/26/23 [Trelegy Ellipta 200-62.5-25] Furosemide [Lasix] 20 mg PO DAILY 08/26/23 08/26/23 HYDROcodone/APAP 7.5-325MG [Marvell 1 tab PO BID PRN 08/26/23 08/26/23 7.5-325] Ibuprofen [Motrin] 600 mg PO BID 08/26/23 08/26/23 Isosorbide Mononitrate ER [Imdur] 30 mg PO DAILY 08/26/23 08/26/23 Loratadine [Claritin] 10 mg PO DAILY 08/26/23 08/26/23 Melatonin 20 mg PO HS 08/26/23 08/26/23 Omeprazole [PriLOSEC] 20 mg PO BID 08/26/23 08/26/23 Oxybutynin Chloride [oxyBUTYnin 10 mg PO BID 08/26/23 08/26/23 chloride ER] cycloSPORINE 0.05% OPHTH SOLN 1 drop BOTH EYES BID 08/26/23 08/26/23 [Restasis] traMADol HCL 50 mg PO Q6H PRN 08/26/23 08/26/23 Previous Rx's Medication Instructions Recorded Nystatin 100,000 Unit/ml Susp 5 ml PO QID #1 unit 02/06/25 [Mycostatin Oral Susp] Allergies Allergy/AdvReac Type Severity Reaction Status Date / Time No Known Allergies Allergy Verified 02/06/25 20:29 Review of Systems ROS Statement: Those systems with pertinent positive or pertinent negative responses have been documented in the HPI. ROS Other: All systems not noted in ROS Statement are negative. Past Medical History Past Medical History: Coronary Artery Disease (CAD), Cancer, Chest Pain / Angina, CVA/TIA, GERD/Reflux, Hypertension, Thyroid Disorder Additional Past Medical History / Comment(s): Lymphoma, diagnosed 20 yrs ago, in remission. Born with a heart murmur. CVA 15 yrs ago, no residual effects. CPAP u se. Hx thyroid problems, no current problems. History of Any Multi-Drug Resistant Organisms: None Reported Additional Past Surgical History / Comment(s): Thyroidectomy, eye surgery, bilateral foot surgery. Past Anesthesia/Blood Transfusion Reactions: No Reported Reaction Past Psychological History: Depression Smoking Status: Current every day smoker Past Alcohol Use History: None Reported Past Drug Use History: Marijuana - Past Family History Mother Family Medical History: Cancer Additional Family Medical History / Comment(s): Blood cancer. General Exam Limitations: no limitations General appearance: alert, in no apparent distress Head exam: Present: atraumatic, normocephalic, normal inspection Eye exam: Present: normal appearance, EOMI Expanded Throat exam: other (White satellite lesions with erythematous base seen in the posterior pharynx and oral mucosa) Neck exam: Present: normal inspection. Absent: meningismus Respiratory exam: Absent: respiratory distress Neurological exam: Present: alert, oriented X3 Psychiatric exam: Present: normal affect, normal mood Skin exam: Present: warm, dry, normal color Course Vital Signs 02/06/25 20:29 Temperature 97.8 F Pulse Rate 101 H Respiratory 17 Rate Blood Pressure 134/86 O2 Sat by Pulse 93 L Oximetry Medical Decision Making - Medical Decision Making Was pt. sent in by a medical professional or institution (, PA, AIR TABLE OPERATOR, urgent care, hospital, or fci...) When possible be specific @ -No Did you speak to anyone other than the patient for history (EMS, parent, family, police, friend...)? What history was obtained from this source @ -No Did you review nursing and triage notes (agree or disagree)? Why? @ -I reviewed and agree with nursing and triage notes Were old charts reviewed (outside hosp., previous admission, EMS record, old EKG, old radiological studies, urgent care reports/EKG's, fci records)? Report findings @ -No old charts were reviewed Differential Diagnosis (chest pain, altered mental status, abdominal pain women, abdominal pain men, vaginal bleeding, weakness, fever, dyspnea, syncope, headache, dizziness, GI bleed, back pain, seizure, CVA, palpatations, mental health, musculoskeletal)? @ -Frontal includes strep pharyngitis, thrush, mononucleosis, not an all- inclusive list EKG interpreted by me (3pts min.). @ -As above X-rays interpreted by me (1pt min.). @ -None done CT interpreted by me (1pt min.). @ -None done U/S interpreted by me (1pt. min.). @ -None done What testing was considered but not performed or refused? (CT, X-rays, U/S, labs)? Why? @ -None What meds were considered but not given or refused? Why? @ -None Did you discuss the management of the patient with other professionals (professionals i.e. Dr., PA, AIR TABLE OPERATOR, lab, RT, psych nurse, group social worker, medical billing manager, teacher, loss prevention officer, case picker)? Give summary @ -No Was smoking cessation discussed for >3mins.? @ -No Was critical care preformed (if so, how long)? @ -No Were there social determinants of health that impacted care today? How? (Homelessness, low income, unemployed, alcoholism, drug addiction, transportation, low edu. Level, literacy, decrease access to med. care, assisted, rehab)? @ -No Was there de-escalation of care discussed even if they declined (Discuss DNR or withdrawal of care, Hospice)? DNR status @ -No What co-morbidities impacted this encounter? (DM, HTN, Smoking, COPD, CAD, Cancer, CVA, ARF, Chemo, Hep., AIDS, mental health diagnosis, sleep apnea, morbid obesity)? @ -None Was patient admitted / discharged? Hospital course, mention meds given and route, prescriptions, significant lab abnormalities, going to OR and other pertinent info. @ -[id number] female presenting with chief complaint of pain in the mouth and throat. She has copious white satellite lesions with erythematous base seen in the mouth and posterior pharynx. Negative for group A strep. We will treat for thrush with nystatin. Patient agreeable with this plan. Follow-up with PCP. Report back to ER with any new or worsening symptoms. Discussed return parameters and answered all questions. Patient conveyed verbal understanding and agreed to the plan. I discussed this case in detail with my attending Dr. Porras Undiagnosed new problem with uncertain prognosis? @ -No Drug Therapy requiring intensive monitoring for toxicity (Heparin, Nitro, Insulin, Cardizem)? @ -No Were any procedures done? @ -No Diagnosis/symptom? @ -Thrush Acute, or Chronic, or Acute on Chronic? @ -Acute Uncomplicated (without systemic symptoms) or Complicated (systemic symptoms)? @ -Uncomplicated Side effects of treatment? @ -No Exacerbation, Progression, or Severe Exacerbation? @ -No Poses a threat to life or bodily function? How? (Chest pain, USA, NV, pneumonia, PE, COPD, DKA, ARF, appy, cholecystitis, CVA, Diverticulitis, Homicidal, Suicidal, threat to staff... and all critical care pts) @ -No - Lab Data Lab Results 02/06/25 Range/Units 20:40 Group A Strep (PCR) NOT DETECTED (Not Detectd) Disposition Clinical Impression: Thrush Disposition: HOME SELF-CARE Condition: Good Instructions (If sedation given, give patient instructions): Oral Candidiasis (ED) Additional Instructions: Follow-up with PCP. Report back to ER with any new or worsening symptoms. Prescriptions: Nystatin 100,000 Unit/ml Susp [Mycostatin Oral Susp] 5 ml PO QID #1 unit Is patient prescribed a controlled substance at d/c from ED?: No Referrals: Nilesh Garcia MD [Primary Care Provider] - 1-2 days Time of Disposition: 21:47
[2025-02-06] MEDS: NYSTATIN 100,000 UNIT/ML SUSP 500,000 UNIT/5 ML CUP PO STA (22:03)
[2025-02-06 22:09] VITALS: BP 125/84; PULSE 99; RESP 20; TEMP 98.4
== END 2025-02-06 22:10 | disposition home or self-care (01) ==
LOC: EC 20:26
DX: B37.9 Candidiasis, unspecified (principal); F17.200 Nicotine dependence, unspecified, uncomplicated
CPT/HCPCS: 87651; 99282

== ENCOUNTER → 2025-05-09 | Outpatient (CLI) | payer OTHER ==
--- NOTE | 2025-05-10 23:28 | PE ---
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 Images are reviewed on the computer in the coronal, a xial, and sagittal planes. Reconstructed rotating images are created on independent workstation and reviewed on the computer. A localization and attenuation correction CT is performed in conjunction with the PET scan. Blood glucose level was 124. SCAN: Subsequent Scan FINDINGS: MEDIASTINUM SUV MEAN: 1.1 LIVER SUV MEAN: 2.53 SKULL BASE AND NECK: No areas of abnormal hypermetabolic uptake CHEST, MEDIASTINUM, AND HILAR REGION: No areas of abnormal hypermetabolic uptake. ABDOMEN AND PELVIS: No areas of abnormal hypermetabolic uptake OSSEOUS STRUCTURES: No areas of abnormal hypermetabolic uptake. OTHER CT: Bilateral aphakia is present. Mild to moderate coronary artery calcification is present. In cidental 2.2 cm simple appearing thin-walled cyst in left hepatic lobe does not require follow-up. Si gmoid colonic diverticulosis is seen. Scoliosis is present. IMPRESSION: No new areas of abnormal hypermetabolic uptake to suggest active lymphoma recurrence. [facility], , 05/10/2025 11:26 PM
== END | disposition home or self-care (01) ==
LOC: RADPETMAIN 12:21
PROVIDERS: ATTEND Internal Medicine
DX: C88.40 Extranodal marginal zone B-cell lymphoma of mucosa-associated lymphoid tissue [MALT-lymphoma] not having achieved remission (principal)
CPT/HCPCS: 78815; A9552